=== PATIENT | male | born 1965 | race Caucasian/White ===

== ENCOUNTER 2017-01-18 13:13 | Inpatient (IN) | payer BC ==
--- NOTE | 2017-01-18 13:00 | CT ---
EXAMINATION TYPE: CT abdomen pelvis w con DATE OF EXAM: 01/18/2017 COMPARISON: NONE HISTORY: RLQ pain, Nausea CT DLP: 1506.90 mGycm Automated exposure control for dose reduction was used. TECHNIQUE: Helical acquisition of images from the lung bases through the pelvis have been completed. CONTRAST: Performed with Oral Contrast and with IV Contrast, patient injected with 100 ml mL of Omnipaque 300. FINDINGS: LUNG BASES: Some minimal basilar atelectatic changes are present. AORTA: No significant abnormality is appreciated. LIVER/GB: No significant abnormality is appreciated. PANCREAS: No significant abnormality is seen. SPLEEN: No significant abnormality is seen. ADRENALS: No significant abnormality is seen. KIDNEYS: No significant abnormality is seen. REPRODUCTIVE ORGANS: Calcifications associated with the prostate gland. BOWEL: There is abnormal thickening of the appendix, periappendiceal inflammatory change extending t o the lateral conal fascia and pericecal location. FREE AIR: No Free Air visible. ASCITES: None visible. PELVIC ADENOPATHY: None visualized. RETROPERITONEAL ADENOPATHY: No Retroperitoneal Adenopathy visible. URINARY BLADDER: No significant abnormality is seen. OSSEOUS STRUCTURES: No significant abnormality is seen. IMPRESSION: FINDINGS COMPATIBLE WITH ACUTE APPENDICITIS.
[2017-01-18] MEDS ORDERED: SODIUM CHLORIDE 0.9% 1,000 ML IV STA (13:50)
--- NOTE | 2017-01-18 13:57 | ED ---
General Adult HPI - General Source: patient, RN notes reviewed Mode of arrival: wheelchair Limitations: no limitations <Derrick Fernandez - Last Filed: 01/18/17 14:18> <Paul Snow - Last Filed: 01/18/17 14:21> - General Chief complaint: Abdominal Pain Time Seen by Provider: 01/18/17 13:41 - History of Present Illness Initial comments: Patient is a 51-year-old male who presents emergency room today with chief complaint of right-sided abdominal pain that started yesterday. Patient does admit that he did have an outpatient CT performed and was brought over from CAT scan. He admits to he's had pain right lower quadrant. He states he also has a headache. He denies any other complaints or symptoms. Patient denies any recent fever, chills, shortness of breath, chest pain, nausea or vomiting, numbness or tingling, dysuria or hematuria, constipation or diarrhea, headaches or visual changes, or any other complaints. (Derrick Fernandez) - Related Data Home Medications Medication Instructions Recorded Confirmed No Known Home Medications [No 01/18/17 01/18/17 Known Home Medications] Allergies Allergy/AdvReac Type Severity Reaction Status Date / Time No Known Allergies Allergy Verified 01/18/17 13:22 Review of Systems ROS Other: All systems not noted in ROS Statement are negative. <Derrick Fernandez - Last Filed: 01/18/17 14:18> ROS Other: All systems not noted in ROS Statement are negative. <Paul Snow - Last Filed: 01/18/17 14:21> ROS Statement: Those systems with pertinent positive or pertinent negative responses have been documented in the HPI. Past Medical History Past Medical History: No Reported History History of Any Multi-Drug Resistant Organisms: None Reported Past Surgical History: Orthopedic Surgery Additional Past Surgical History / Comment(s): CYST REMOVAL FROM BACK, TESTICULAR, RIGHT SHOULDER Past Psychological History: No Psychological Hx Reported Smoking Status: Never smoker Past Alcohol Use History: None Reported Past Drug Use History: None Reported <Derrick Fernandez - Last Filed: 01/18/17 14:18> General Exam Limitations: no limitations <Derrick Fernandez - Last Filed: 01/18/17 14:18> <Paul Snow - Last Filed: 01/18/17 14:21> - General Exam Comments Initial Comments: General: The patient is awake and alert, in no distress, and does not appear acutely ill. Eye: Pupils are equal, round and reactive to light, extra-ocular movements are intact. No nystagmus. There is normal conjunctiva bilaterally. No signs of icterus. Ears, nose, mouth and throat: There are moist mucous membranes and no oral lesions. Neck: The neck is supple, there is no tenderness or JVD. Cardiovascular: There is a regular rate and rhythm. No murmur, rub or gallop is appreciated. Respiratory: Lungs are clear to auscultation, respirations are non-labored, breath sounds are equal. No wheezes, stridor, rales, or rhonchi. Gastrointestinal: Normal appearance them. Normal bowel sounds. Soft on palpation. Patient does have tenderness right lower quadrant. No rebound tenderness. No guarding. No CVA tenderness. Musculoskeletal: Normal ROM, no tenderness. Strength 5/5. Sensation intact. Pulses equal bilaterally 2+. Neurological: A&O x 3. CN II-XII intact, There are no obvious motor or sensory deficits. Coordination appears grossly intact. Speech is normal. Skin: Skin is warm and dry and no rashes or lesions are noted. Psychiatric: Cooperative, appropriate mood & affect, normal judgment. (Derrick Fernandez) Vital Signs 01/18/17 13:20 Temperature 100.9 F H Pulse Rate 93 Respiratory 18 Rate Blood Pressure 145/88 O2 Sat by Pulse 98 Oximetry Medical Decision Making <Derrick Fernandez - Last Filed: 01/18/17 14:18> <Paul Snow - Last Filed: 01/18/17 14:21> - Medical Decision Making Patient's CAT scan is consistent with acute appendicitis. Case was discussed and seen by tender physician Dr. Snow who did discuss case with on-call surgeon Dr. Sheikh who will admit the patient. Patient family aware the plan state understating and are in agreement. (Derrick Fernandez) The patient was seen and examined. All diagnostics were reviewed. The case was discussed with general surgery and they will evaluate the patient shortly and he will likely go to the operating room. The case also was discussed with the PA and I agree with the findings as documented. (Paul Snow) Disposition Time of Disposition: 14:13 <Derrick Fernandez - Last Filed: 01/18/17 14:18> <Paul Snow - Last Filed: 01/18/17 14:21> Clinical Impression: Acute appendicitis Disposition: ADMITTED IP TO THIS HOSP Condition: Good Referrals: Sid Schroeder DO [Primary Care Provider] - 1-2 days
[2017-01-18] MEDS ORDERED: NALOXONE 0.4 MG/ML 1 ML VIAL IV PRN (14:16)
[2017-01-18] MEDS ORDERED: ONDANSETRON 4 MG/2 ML VIAL IVP PRN (14:16)
[2017-01-18] MEDS ORDERED: HYDROmorphone 1 MG/ML 1 ML SYRINGE IVP PRN ×2 (14:16→17:36)
[2017-01-18] MEDS ORDERED: PIPERACILLIN-TAZOBACTAM 3.375 GM in DEXTROSE/WATER 1 50ML.BAG IVPB STA (14:18)
[2017-01-18] MEDS ORDERED: ACETAMINOPHEN IV (For NPO) 1,000 MG in EMPTY BAG 1 BAG IVPB STA (14:18)
[2017-01-18 14:20] LABS: Basophils % (A) 0 %; CH 31.9; CHCM 34.8; Eosinophils # (A) 0.2 k/uL (0-0.7); Eosinophils % (A) 1 %; HCT 46.5 % (39.0-53.0); HDW 2.45; Luc # (Auto) 0.13; Luc % (Auto) 1; Lymphocytes # (A) 1.2 k/uL (1.0-4.8); Lymphocytes % (A) 6 %; MCH 31.6 pg (25.0-35.0); MCHC 34.4 g/dL (31.0-37.0); MCV 91.9 fL (80.0-100.0); Mean Platelet Volume 7.2; Monocytes # (A) 0.8 k/uL (0-1.0); Monocytes % (A) 4 %; Neutrophils # (A) 16.9 k/uL (1.3-7.7); Neutrophils % (A) 88 %; RBC 5.06 m/uL (4.30-5.90); RDW 13.6 % (11.5-15.5); WBC 19.2 k/uL (3.8-10.6)
[2017-01-18 14:29] LABS: ALT 36 U/L (21-72); AST 37 U/L (17-59); Alkaline Phosphatase 60 U/L (38-126); Anion Gap 10 mmol/L; Blood Urea Nitrogen 13 mg/dL (9-20); Calcium 9.7 mg/dL (8.4-10.2); Carbon Dioxide 23 mmol/L (22-30); Chloride 103 mmol/L (98-107); Glucose 104 mg/dL (74-99); Non-African American GFR(MDRD) >60 (>60 ml/min/1.73 sqM); Sodium 136 mmol/L (137-145); Total Bilirubin 1.3 mg/dL (0.2-1.3)
[2017-01-18 14:32] LABS: INR 1.1 (<1.2); Partial Thromboplastin Time 25.2 sec (22.0-30.0); Prothrombin Time 11.4 sec (9.0-12.0)
[2017-01-18 14:39] LABS: Potassium 4.1 mmol/L (3.5-5.1)
--- NOTE | 2017-01-18 15:48 | P.GSHP ---
History of Present Illness H&P Date: 01/18/17 Chief Complaint: Acute appendicitis This is a 51-year-old male who presented with a chief complaint of abdominal pain 24 hours he was seen by his PCP who that lab work and sent into the emergency room for a computed tomography scan which was consistent with acute appendicitis. The patient states it had anything to eat or drink today because he has been nauseous. His abdominal pain started yesterday morning and continued to get worse. He denies any fevers or chills. He denies any diarrhea. He's been passing normal bowel movements. He has no major medical problems. He has had surgery on his shoulder before. He had a colonoscopy 1 year ago which was normal. No other complaints at this time. Past Medical History Past Medical History: No Reported History History of Any Multi-Drug Resistant Organisms: None Reported Past Surgical History: Orthopedic Surgery Additional Past Surgical History / Comment(s): CYST REMOVAL FROM BACK, TESTICULAR, RIGHT SHOULDER Past Psychological History: No Psychological Hx Reported Smoking Status: Never smoker Past Alcohol Use History: None Reported Past Drug Use History: None Reported Medications and Allergies Home Medications Medication Instructions Recorded Confirmed Type No Known Home Medications [No 01/18/17 01/18/17 History Known Home Medications] Allergies Allergy/AdvReac Type Severity Reaction Status Date / Time No Known Allergies Allergy Verified 01/18/17 14:47 Surgical - Exam Osteopathic Statement: *. No significant issues noted on an osteopathic structural exam other than those noted in the History and Physical/Consult. Vital Signs Temp Pulse Resp BP Pulse Ox 100.9 F H 93 18 145/88 98 01/18/17 13:20 01/18/17 13:20 01/18/17 13:20 01/18/17 13:20 01/18/17 13:20 - General well developed, well nourished - Eyes PERRL, normal ocular movement - ENT normal pinna, normal mucosa - Neck no masses - Respiratory normal expansion, normal respiratory effort - Cardiovascular Rhythm: regular - Abdomen Abdomen: soft, tender (Right lower quadrant, no rigidity or guarding) - Neurologic normal coordination, normal sensation - Musculoskeletal normal gait - Psychiatric oriented to time, oriented to person Results - Labs 01/18/17 14:05 01/18/17 14:05 Abnormal Lab Results - Last 24 Hours (Table) 01/18/17 01/18/17 Range/Units 14:05 14:05 WBC 19.2 H (3.8-10.6) k/uL Neutrophils # 16.9 H (1.3-7.7) k/uL Sodium 136 L (137-145) mmol/L Glucose 104 H (74-99) mg/dL Diabetes panel 01/18/17 Range/Units 14:05 Sodium 136 L (137-145) mmol/L Potassium 4.1 (3.5-5.1) mmol/L Chloride 103 (98-107) mmol/L Carbon Dioxide 23 (22-30) mmol/L BUN 13 (9-20) mg/dL Creatinine 1.00 (0.66-1.25) mg/dL Glucose 104 H (74-99) mg/dL Calcium 9.7 (8.4-10.2) mg/dL AST 37 (17-59) U/L ALT 36 (21-72) U/L Alkaline Phosphatase 60 (38-126) U/L Total Protein 8.0 (6.3-8.2) g/dL Albumin 4.5 (3.5-5.0) g/dL Calcium panel 01/18/17 Range/Units 14:05 Calcium 9.7 (8.4-10.2) mg/dL Albumin 4.5 (3.5-5.0) g/dL Pituitary panel 01/18/17 Range/Units 14:05 Sodium 136 L (137-145) mmol/L Potassium 4.1 (3.5-5.1) mmol/L Chloride 103 (98-107) mmol/L Carbon Dioxide 23 (22-30) mmol/L BUN 13 (9-20) mg/dL Creatinine 1.00 (0.66-1.25) mg/dL Glucose 104 H (74-99) mg/dL Calcium 9.7 (8.4-10.2) mg/dL Adrenal panel 01/18/17 Range/Units 14:05 Sodium 136 L (137-145) mmol/L Potassium 4.1 (3.5-5.1) mmol/L Chloride 103 (98-107) mmol/L Carbon Dioxide 23 (22-30) mmol/L BUN 13 (9-20) mg/dL Creatinine 1.00 (0.66-1.25) mg/dL Glucose 104 H (74-99) mg/dL Calcium 9.7 (8.4-10.2) mg/dL Total Bilirubin 1.3 (0.2-1.3) mg/dL AST 37 (17-59) U/L ALT 36 (21-72) U/L Alkaline Phosphatase 60 (38-126) U/L Total Protein 8.0 (6.3-8.2) g/dL Albumin 4.5 (3.5-5.0) g/dL - Imaging CT scan - abdomen: report reviewed, image reviewed Assessment and Plan Assessment: Acute appendicitis Plan: Laparoscopic possible open appendectomy. IV ABX, IVF, NPO, SQ heparin and SCDs for DVT prevention. This plan was discussed the patient and his at bedside. The risks benefits and alternatives to surgery were discussed including risks of bleeding infection damage to surrounding tissue need for further operation abscess and conversion to open he stated he understood these risks agreed and consented.
[2017-01-18] MEDS ORDERED: IV FLUID CONTINUATION 900 ML IV ONE (16:07)
[2017-01-18] MEDS: HEPARIN SODIUM,PORCINE 5,000 UNIT/ML 1 ML VIAL SQ SCH (16:07)
[2017-01-18] MEDS ORDERED: ROCURONIUM BROMIDE 10 MG/ML 10 ML VIAL IV ONE (16:14)
[2017-01-18] MEDS ORDERED: PHENYLEPHRINE-0.9% NACL SYG 1 MG/10 ML SYRINGE ONE (16:14)
[2017-01-18] MEDS ORDERED: NEOSTIGMINE 1 MG/ML 10 ML VIAL ONE (16:14)
[2017-01-18] MEDS ORDERED: GLYCOPYRROLATE 0.2 MG/ML 2 ML VIAL ONE (16:14)
[2017-01-18] MEDS ORDERED: PROPOFOL 10 MG/ML 20 ML VIAL IV ONE (16:14)
[2017-01-18] MEDS ORDERED: LIDOCAINE 1% INJ 10MG/ML (20 ML MDV) ONE (16:14)
[2017-01-18] MEDS ORDERED: KETOROLAC 30 MG/ML 1 ML VIAL ONE (16:14)
[2017-01-18] MEDS ORDERED: MIDAZOLAM 2 MG/2 ML VIAL ONE (16:14)
[2017-01-18] MEDS ORDERED: fentaNYL (PF) 50 MCG/ML 2 ML AMP ONE (16:14)
[2017-01-18] MEDS ORDERED: SUCCINYLCHOLINE CHLORIDE 100 MG/5 ML SYR IV ONE (16:14)
[2017-01-18] MEDS ORDERED: LIDOCAINE 1% INJ 10MG/ML (20 ML MDV) SQ ONE (16:48)
[2017-01-18] MEDS ORDERED: BUPIVACAINE-EPI 0.5%-1:200,000 10 ML VIAL SQ ONE (16:49)
--- NOTE | 2017-01-18 17:27 | P.OP ---
Date of Procedure: 01/18/17 Preoperative Diagnosis: Acute appendicitis Postoperative Diagnosis: Acute appendicitis with contained perforation Procedure(s) Performed: Laparoscopic appendectomy Anesthesia: FRANCESCO Surgeon: Chon Sheikh Estimated Blood Loss (ml): 5 Condition: stable Disposition: PACU Indications for Procedure: This is a 51-year-old male who presented with symptoms consistent with acute appendicitis. He had a computed tomography scan and labs that were consistent with acute appendicitis. Laparoscopic appendectomy possible conversion to open was discussed with the patient including risks and benefits. He understood these and agreed and consented Operative Findings: Acute appendicitis with a contained perforation Description of Procedure: Patient was brought into the operative suite remained in the supine position underwent general endotracheal anesthesia per Department of anesthesia. He was then prepped and draped in the usual sterile fashion timeout was performed correct patient and correct procedure correct site was verified. A 12 mm incision was made in the left lower quadrant. Using a 12 mm Visiport the abdomen was entered under direct visualization and insufflated. No injuries were noted. There was a 5 mm port placed under direct visualization supraumbilical. There was a 5 mm port placed under direct visualization suprapubically. The patient was then placed in Trendelenburg right side up. The appendix was grasped with the atraumatic grasper and using a LigaSure the mesoappendix began to be taken down adhesions of the appendix were bluntly taken down. While doing this encountered a contained perforation of the appendix. This was suctioned and cleaned and irrigated. The appendix was taken down to the base of the cecum. A 60 mm holland load Endo LISE stapler was used to staple across the appendix at the base of the cecum. The appendix was placed in an Endo Catch bag and removed to the 12 mm port site. The staple line was inspected and noted be intact hemostasis was noted the area was copiously irrigated and suctioned. The 12 mm port site was closed with 0 Vicryl with 8 of a Kamar-Katia suture passer. The abdomen was desufflated all ports removed the skin was closed with 4-0 Monocryl subcuticular sutures followed by skin glue patient tolerated the procedure well there is no apparent complications
[2017-01-18] MEDS ORDERED: IV FLUID CONTINUATION 1,000 ML IV ONE (18:16)
[2017-01-18] MEDS: LACTATED RINGERS 1,000 ML IV SCH (19:34)
[2017-01-18] MEDS: HYDROcodone/APAP 5-325MG 1 EACH TAB PO PRN (21:11)
[2017-01-19] MEDS ORDERED: HEPARIN SODIUM,PORCINE 5,000 UNIT/ML 1 ML VIAL ONE (00:13)
[2017-01-19] MEDS: HEPARIN SODIUM,PORCINE 5,000 UNIT/ML 1 ML VIAL SQ SCH ×2 (04:45→08:38)
[2017-01-19] MEDS: PIPERACILLIN-TAZOBACTAM 3.375 GM in DEXTROSE/WATER 1 50ML.BAG IVPB SCH ×2 (04:46→08:38)
[2017-01-19] MEDS: HYDROcodone/APAP 5-325MG 1 EACH TAB PO PRN (05:08)
[2017-01-19 06:41] LABS: Basophils % (A) 0 %; CH 32.2; CHCM 34.9; Eosinophils % (A) 0 %; HCT 43.3 % (39.0-53.0); HDW 2.63; HGB 14.4 gm/dL (13.0-17.5); Luc # (Auto) 0.08; Luc % (Auto) 0; Lymphocytes # (A) 0.7 k/uL (1.0-4.8); Lymphocytes % (A) 3 %; MCH 30.8 pg (25.0-35.0); MCHC 33.2 g/dL (31.0-37.0); MCV 92.6 fL (80.0-100.0); Mean Platelet Volume 7.1; Monocytes # (A) 0.7 k/uL (0-1.0); Monocytes % (A) 3 %; Neutrophils # (A) 19.3 k/uL (1.3-7.7); Neutrophils % (A) 93 %; RBC 4.68 m/uL (4.30-5.90); RDW 11.7 % (11.5-15.5); WBC 20.7 k/uL (3.8-10.6); WBC (Perox) 20.65
[2017-01-19 06:51] LABS: ALT 42 U/L (21-72); AST 26 U/L (17-59); Alkaline Phosphatase 49 U/L (38-126); Anion Gap 10 mmol/L; Blood Urea Nitrogen 17 mg/dL (9-20); Calcium 9.2 mg/dL (8.4-10.2); Carbon Dioxide 23 mmol/L (22-30); Chloride 105 mmol/L (98-107); Glucose 139 mg/dL (74-99); Non-African American GFR(MDRD) >60 (>60 ml/min/1.73 sqM); Potassium 4.9 mmol/L (3.5-5.1); Sodium 138 mmol/L (137-145); Total Bilirubin 1.4 mg/dL (0.2-1.3); Total Protein 6.8 g/dL (6.3-8.2)
[2017-01-19 08:02] VITALS: BP 136/75; RESP 16
[2017-01-19] MEDS: LACTATED RINGERS 1,000 ML IV SCH ×2 (08:37→15:37)
[2017-01-19] MEDS ORDERED: IBUPROFEN 600 MG TAB PO PRN (11:05)
[2017-01-19] MEDS ORDERED: DOCUSATE 100 MG CAP PO SCH (11:15)
--- NOTE | 2017-01-19 14:42 | P.PN ---
Progress Note - Text Progress Note Date: 01/19/17 Patient seen and examined today he's doing much better he has no complaints at this time. His pain is well-controlled. He is tolerating clear liquids in stating he is hungry. No fevers overnight. His incisions are clean dry and intact. I discussed with the patient advancing his diet she tolerates his diet he may be discharged home in the afternoon. I recommended discharging the patient on Augmentin secondary to his purulent contained perforation of his appendicitis. He stated he understood and agreed and he'll follow up my office in 1-2 weeks.
--- NOTE | 2017-01-19 14:43 | P.DS ---
Providers Date of admission: 01/18/17 14:16 Expected date of discharge: 01/19/17 Attending physician: Chon Sheikh DO Consults: 01/18/17 15:41 Consult Physician Routine Consulting Provider: [facility] Consult Reason/Comments: [facility] Do you want consulting provider notified?: Yes [facility] Course: 1-year-old male who presented with a chief complaint of having abdominal pain onset 24 hours prior. Patient was seen by his PCP who was sent into the emergency room to have a CAT scan done of the abdomen which was consistent for acute appendicitis patient denied any fever chills. Patient had a colonoscopy one year prior which was normal.. Patient underwent on January 18 laparoscopic appendectomy for acute appendicitis with contained perforation. Postop no events. Patient was tolerating a diet no nausea no vomiting On January 19 was felt to be clinically stable and appropriate proceed with a discharge to home Impression discharge diagnoses Present on admission abdominal pain with a CAT scan of the abdomen consistent with acute appendicitis Status post January 18 laparoscopic appendectomy for acute appendicitis with contained perforation Present on admission leukocytosis suspect reactive The above impression and plan of care have been discussed and directed by signing physician. Andreia Alex nurse practitioner acting as scribe for signing physician. Patient Condition at Discharge: Good Plan - Discharge Summary New Discharge Prescriptions: New Amoxicillin/Potassium Clav [Augmentin 875-125 Tablet] 1 tab PO Q12HR #20 tab Ibuprofen [Motrin] 0 mg PO Q4H PRN #20 tab PRN Reason: Mild Discomfort Discharge Medication List Amoxicillin/Potassium Clav [Augmentin 875-125 Tablet] 1 tab PO Q12HR #20 tab [Rx] Ibuprofen [Motrin] 0 mg PO Q4H PRN #20 tab 01/19/17 [Rx] Follow up Appointment(s)/Referral(s): Sid Schroeder DO [Primary Care Provider] - 1-2 days Chon Sheikh DO [Doctor of Osteopathic Medicine] - 1 Week Care Plan Goals (MU): No strenuous activities until seen in a follow-up visit No tub bath Notify the attending of any redness drainage from surgical site or any fever chills No lifting over 4 pounds until seen in the follow-up visit May return to work after seen in the follow-up visit May shower The above impression and plan of care have been discussed and directed by signing physician. Andreia Alex nurse practitioner acting as scribe for signing physician. Discharge Disposition: HOME SELF-CARE
[2017-01-19 16:24] VITALS: PULSE 81; TEMP 98.3
== END 2017-01-19 17:20 | disposition home or self-care (01) | DRG 340 ==
LOC: EC 13:13 → 3SUR 14:16
PROVIDERS: ADMIT Student in an Organized Health Care Education/Training Program; ATTEND Student in an Organized Health Care Education/Training Program
PROC: 0DTJ4ZZ Resection of Appendix, Percutaneous Endoscopic Approach (ICD-10-PCS; principal; 2017-01-18 14:57)
DX: K35.3 Acute appendicitis with localized peritonitis (principal)
CPT/HCPCS: 36415; 74177; 80053; 85025; 85610; 85730; 86850; 86900; 86901; 87040; 88304; 96361; 96365; 99285

== ENCOUNTER 2017-07-16 23:58 | Emergency (ER) | payer BC ==
[2017-07-17 00:06] VITALS: BP 151/86; PULSE 69; RESP 16; TEMP 97.8
[2017-07-17] MEDS ORDERED: KETOROLAC 30 MG/ML 1 ML VIAL IM STA (00:30)
[2017-07-17] MEDS ORDERED: DIAZEPAM 5 MG/ML 2 ML INJ IM ONE (00:31)
[2017-07-17] MEDS ORDERED: MORPHINE SULFATE 4 MG/ML SYRINGE IM STA (00:31)
--- NOTE | 2017-07-17 00:34 | ED ---
General Adult HPI - General Chief complaint: Back Pain/Injury Stated complaint: Back pain Time Seen by Provider: 07/17/17 00:23 Source: patient, RN notes reviewed, old records reviewed Mode of arrival: wheelchair Limitations: no limitations - History of Present Illness Initial comments: 51-year-old male presents with 12 hour history of right lower back pain. Patient states that approximately once a year he does develop some muscular skeletal back pain. This is typical of his previous exacerbations. Denies any specific injury or overuse. This morning he had some stiffness, this has progressed throughout the day. He has used Motrin and his TENS unit with minimal relief. He denies any lower extremity pain, numbness or tingling. No sensory deficits. No fever or chills. No abdominal pain. No changes in his bowel or bladder. No dysuria or hematuria. Patient is otherwise healthy. - Related Data Previous Rx's Medication Instructions Recorded Amoxicillin/Potassium Clav 1 tab PO Q12HR #20 tab 01/19/17 [Augmentin 875-125 Tablet] Ibuprofen [Motrin] 0 mg PO Q4H PRN #20 tab 01/19/17 Diazepam [Valium] 5 mg PO HS #5 tab 07/17/17 HYDROcodone/APAP 5-325MG [[place] 1 tab PO Q6HR PRN #12 tab 07/17/17 5-325] Ibuprofen [Motrin] 600 mg PO Q8HR PRN #24 tab 07/17/17 Allergies Allergy/AdvReac Type Severity Reaction Status Date / Time No Known Allergies Allergy Verified 07/17/17 00:06 Review of Systems ROS Statement: Those systems with pertinent positive or pertinent negative responses have been documented in the HPI. ROS Other: All systems not noted in ROS Statement are negative. Past Medical History Past Medical History: No Reported History History of Any Multi-Drug Resistant Organisms: None Reported Past Surgical History: Appendectomy, Orthopedic Surgery Additional Past Surgical History / Comment(s): CYST REMOVAL FROM BACK, TESTICULAR, RIGHT SHOULDER Past Anesthesia/Blood Transfusion Reactions: No Reported Reaction Past Psychological History: No Psychological Hx Reported Smoking Status: Never smoker General Exam Limitations: no limitations General appearance: alert, in no apparent distress Head exam: Present: atraumatic, normocephalic Eye exam: Present: normal appearance, PERRL ENT exam: Present: normal exam Neck exam: Present: normal inspection. Absent: tenderness, meningismus Respiratory exam: Present: normal lung sounds bilaterally. Absent: respiratory distress Cardiovascular Exam: Present: regular rate, normal rhythm GI/Abdominal exam: Present: soft. Absent: distended, tenderness, guarding Extremities exam: Present: normal inspection, full ROM, normal capillary refill , pedal edema. Absent: calf tenderness Back exam: Present: normal inspection, paraspinal tenderness. Absent: CVA tenderness (R), CVA tenderness (L) Neurological exam: Present: alert, oriented X3, CN II-XII intact, reflexes normal. Absent: motor sensory deficit Psychiatric exam: Present: normal affect, normal mood Skin exam: Present: warm, dry, intact. Absent: cyanosis, diaphoretic Course Vital Signs 07/17/17 00:03 Temperature 97.8 F Pulse Rate 69 Respiratory 16 Rate Blood Pressure 151/86 O2 Sat by Pulse 97 Oximetry Medical Decision Making - Medical Decision Making 51-year-old male presenting with most of scalp and back pain. No alarming features on history or physical exam. Patient given intramuscular Toradol, morphine, and Valium. On reevaluation he is feeling much better. He is ambulatory. He will be discharged home with anti-inflammatories and pain medication. Follow-up with primary care physician. Disposition Clinical Impression: Mechanical back pain Disposition: HOME SELF-CARE Condition: Good Instructions: Acute Low Back Pain (ED) Prescriptions: Diazepam [Valium] 5 mg PO HS #5 tab HYDROcodone/APAP 5-325MG [[place] 5-325] 1 tab PO Q6HR PRN #12 tab PRN Reason: Pain Ibuprofen [Motrin] 600 mg PO Q8HR PRN #24 tab PRN Reason: Pain Is patient prescribed a controlled substance at d/c from ED?: Yes If prescribed controlled substance>3 days was MAPS reviewed?: Yes When asked, does pt state using other controlled substances?: No Referrals: Sid Schroeder DO [Primary Care Provider] - 1-2 days Time of Disposition: 01:18
== END 2017-07-17 01:35 | disposition home or self-care (01) ==
LOC: EC 23:58
DX: M54.5 Low back pain (principal); Z98.890 Other specified postprocedural states; Z53.20 Procedure and treatment not carried out because of patient's decision for unspecified reasons
CPT/HCPCS: 99283; 96372; J2270; J3360

== ENCOUNTER → 2018-04-24 | Outpatient (CLI) | payer OTHER ==
--- NOTE | 2018-04-24 07:50 | MR ---
EXAMINATION TYPE: MR lumbar spine wo/w con DATE OF EXAM: 04/24/2018 7:45 AM COMPARISON: NONE HISTORY: Lumbago with sciatica, right side CONTRAST: The patient was injected with 10 mL intravenous Gadavist gadolinium contrast. Multiplanar, MultiSpin echo imaging of the lumbar spine was performed. L1-L2: Normal disc appearance without desiccation. No herniation, protrusion or disc bulging. No ca nal stenosis is present. Foramina are patent bilaterally. L2-L3: Normal disc appearance without desiccation. No herniation, protrusion or disc bulging. No ca nal stenosis is present. Foramina are patent bilaterally. L3-L4: Normal disc appearance without desiccation. No herniation, protrusion or disc bulging. No ca nal stenosis is present. Foramina are patent bilaterally. L4-L5: Mild disc desiccation noted. Mild right paracentral disc herniation results in right lateral r ecess stenosis and right foraminal encroachment. No evidence for central stenosis. No pathologic enha ncement. L5-S1: Normal disc appearance without desiccation. No herniation, protrusion or disc bulging. No ca nal stenosis is present. Foramina are patent bilaterally. Lumbar segments are intact. No paraspinal masses are identified. Conus medullaris has a normal appe arance. IMPRESSION: 1. Mild disc desiccation noted. Mild right paracentral disc herniation results in right lateral reces s stenosis and right foraminal encroachment.
== END ==
LOC: RADMRIMAIN 06:59
PROVIDERS: ATTEND Family Medicine
DX: M48.061 Spinal stenosis, lumbar region without neurogenic claudication (principal); M51.26 Other intervertebral disc displacement, lumbar region
CPT/HCPCS: 72158; A9585

== ENCOUNTER → 2018-08-03 | Outpatient (CLI) | payer OTHER ==
[2018-08-03 07:25] LABS: Basophils % (A) 1 %; Eosinophils # (A) 0.2 k/uL (0-0.7); Eosinophils % (A) 2 %; HGB 16.1 gm/dL (13.0-17.5); Lymphocytes # (A) 1.5 k/uL (1.0-4.8); Lymphocytes % (A) 25 %; MCH 29.8 pg (25.0-35.0); MCHC 33.5 g/dL (31.0-37.0); MCV 88.7 fL (80.0-100.0); Mean Platelet Volume 6.9; Monocytes # (A) 0.4 k/uL (0-1.0); Monocytes % (A) 6 %; Neutrophils # (A) 3.9 k/uL (1.3-7.7); Neutrophils % (A) 64 %; Platelet Count 263 k/uL (150-450); RBC 5.41 m/uL (4.30-5.90); RDW 13.8 % (11.5-15.5); WBC 6.1 k/uL (3.8-10.6)
[2018-08-03 11:42] LABS: Albumin 4.4 g/dL (3.80-4.90); Albumin/Globulin Ratio 1.76 (1.60-3.17); Anion Gap 6.5 mmol/L (4.00-12.00); Calcium 9.4 mg/dL (8.7-10.3); Carbon Dioxide 25.5 mmol/L (21.6-31.8); Globulin 2.5 g/dL (1.6-3.3); Potassium 4.6 mmol/L (3.5-5.5); Total Bilirubin 0.7 mg/dL (0.2-1.2); Total Protein 6.9 g/dL (6.2-8.2)
== END | disposition home or self-care (01) ==
LOC: LABWHC1 06:32
PROVIDERS: ATTEND Physician Assistant Medical
DX: Z00.00 Encounter for general adult medical examination without abnormal findings (principal); Z12.5 Encounter for screening for malignant neoplasm of prostate
CPT/HCPCS: 36415; 80053; 80061; 84153; 84443; 85025

== ENCOUNTER 2019-09-22 18:52 | Emergency (ER) | payer OTHER ==
[2019-09-22] MEDS ORDERED: KETOROLAC 30 MG/ML 1 ML VIAL IM STA (19:59)
[2019-09-22] MEDS ORDERED: LIDOCAINE 5% PATCH TOPICAL STA (19:59)
[2019-09-22] MEDS: CYCLOBENZAPRINE 10 MG TAB PO STA ×2 (20:09→20:17)
[2019-09-22] MEDS ORDERED: DIAZEPAM 5 MG/ML 2 ML INJ IM STA (20:18)
[2019-09-22] MEDS ORDERED: ACET/COD 300 MG/30 MG STARTER PACK 6 TAB BTL PO STA (21:10)
--- NOTE | 2019-09-22 21:11 | ED ---
Back Pain HPI - General Chief Complaint: Back Pain/Injury Stated Complaint: Back pain Time Seen by Provider: 09/22/19 19:34 Source: patient Limitations: no limitations - History of Present Illness Initial Comments: Patient is 53-year-old male presenting to emergency Department with a chief complaint of neck pain. This is acute on chronic back pain. Most recent episode started approximately 2 weeks ago and has been gradually increasing severity. He denies any direct trauma to the region. He denies saddle anesthesia, urinary retention with overflow incontinence or bowel incontinence. Reports he took Flexeril with minimal improvement in symptoms. States he did see a orthopedic surgeon who advised him to go physical therapy. Patient reports he did not finish his course of physical therapy. States his most recent MRI reveals multilevel spondylitic changes with degenerative disc disease. - Related Data Previous Rx's Medication Instructions Recorded Amoxicillin/Potassium Clav 1 tab PO Q12HR #20 tab 01/19/17 [Augmentin 875-125 Tablet] Ibuprofen [Motrin] 0 mg PO Q4H PRN #20 tab 01/19/17 Diazepam [Valium] 5 mg PO HS #5 tab 07/17/17 HYDROcodone/APAP 5-325MG [[place] 1 tab PO Q6HR PRN #12 tab 07/17/17 5-325] Ibuprofen [Motrin] 600 mg PO Q8HR PRN #24 tab 07/17/17 Allergies Allergy/AdvReac Type Severity Reaction Status Date / Time No Known Allergies Allergy Verified 09/22/19 19:09 Review of Systems ROS Statement: Those systems with pertinent positive or pertinent negative responses have been documented in the HPI. ROS Other: All systems not noted in ROS Statement are negative. Past Medical History Past Medical History: No Reported History History of Any Multi-Drug Resistant Organisms: None Reported Past Surgical History: Appendectomy, Orthopedic Surgery Additional Past Surgical History / Comment(s): CYST REMOVAL FROM BACK, TESTICULAR, RIGHT SHOULDER Past Anesthesia/Blood Transfusion Reactions: No Reported Reaction Past Psychological History: No Psychological Hx Reported Smoking Status: Never smoker Past Alcohol Use History: None Reported Past Drug Use History: None Reported General Exam Limitations: no limitations General appearance: alert, in no apparent distress, obese Head exam: Present: atraumatic, normocephalic, normal inspection Eye exam: Present: normal appearance, PERRL, EOMI Pupils: Present: normal accommodation ENT exam: Present: normal exam, normal oropharynx, mucous membranes moist, TM's normal bilaterally, normal external ear exam Neck exam: Present: normal inspection, full ROM. Absent: tenderness Respiratory exam: Present: normal lung sounds bilaterally. Absent: respiratory distress, wheezes Cardiovascular Exam: Present: regular rate, normal rhythm, normal heart sounds. Absent: bradycardia, tachycardia GI/Abdominal exam: Present: soft. Absent: distended, tenderness, guarding, rebound Extremities exam: Present: normal inspection, full ROM, normal capillary refill. Absent: tenderness Back exam: Present: normal inspection, full ROM, tenderness, paraspinal tenderness (Right-sided paraspinal tenderness in the lumbosacral region.) Neurological exam: Present: alert, oriented X3 Psychiatric exam: Present: normal affect, normal mood Skin exam: Present: warm, dry, intact, normal color Course Vital Signs 09/22/19 09/22/19 19:07 20:34 Temperature 98.3 F Pulse Rate 82 63 Respiratory 18 16 Rate Blood Pressure 163/105 151/89 O2 Sat by Pulse 98 99 Oximetry Medical Decision Making - Medical Decision Making Patient is a 53-year-old male presenting to emergency Department with chief complaint of back pain. This is acute on chronic back pain. No cauda equina. No red flags. Patient was given Toradol, Lidoderm patch. He was also offered Flexeril but he declined. Patient was also given 5 mg of Valium. On reevaluation patient reports improvement in symptoms. Patient will be discha rged with Tylenol 3 starter pack. Patient advised to follow with mobile security specialist. Return parameters were thoroughly discussed with patient was understanding ago. Case discussed with physician. Disposition Clinical Impression: Mechanical back pain, Strain of lumbar region Disposition: HOME SELF-CARE Instructions (If sedation given, give patient instructions): Acute Low Back Pain (ED) Additional Instructions: Take prescribed medication as directed. Follow-up with orthopedic surgeon. Do not drive or operate machinery when taking medication. Is patient prescribed a controlled substance at d/c from ED?: No Referrals: Sid Schroeder DO [Primary Care Provider] - 1-2 days Walter Payton DO [Doctor of Osteopathic Medicine] - 1-2 days Time of Disposition: 21:10
[2019-09-22] MEDS ORDERED: MORPHINE SULFATE 4 MG/ML SYRINGE IVP STA (21:29)
[2019-09-22 21:38] VITALS: BP 154/92; PULSE 65; RESP 18; TEMP 97.7
== END 2019-09-22 22:02 | disposition home or self-care (01) ==
LOC: EC 18:52
DX: S39.012A Strain of muscle, fascia and tendon of lower back, initial encounter (principal); G89.29 Other chronic pain; X50.9XXA Other and unspecified overexertion or strenuous movements or postures, initial encounter
CPT/HCPCS: 96374; 96372 ×2; 99283; J2270; J3360; J1885

== ENCOUNTER → 2020-02-08 | Outpatient (CLI) | payer OTHER ==
[2020-02-08 13:55] LABS: Basophils % (A) 0 %; Eosinophils # (A) 0.1 k/uL (0-0.7); Eosinophils % (A) 1 %; HCT 48.5 % (39.0-53.0); HGB 16.2 gm/dL (13.0-17.5); Lymphocytes # (A) 1.5 k/uL (1.0-4.8); Lymphocytes % (A) 23 %; MCH 30.5 pg (25.0-35.0); MCHC 33.5 g/dL (31.0-37.0); MCV 91.1 fL (80.0-100.0); Mean Platelet Volume 6.7; Monocytes # (A) 0.4 k/uL (0-1.0); Monocytes % (A) 7 %; Neutrophils # (A) 4.2 k/uL (1.3-7.7); Neutrophils % (A) 66 %; Platelet Count 242 k/uL (150-450); RBC 5.32 m/uL (4.30-5.90); RDW 12.2 % (11.5-15.5); WBC 6.3 k/uL (3.8-10.6)
[2020-02-08 13:59] LABS: Appearance,Urine Clear (Clear); Bilirubin,Urine Negative (Negative); Blood,Urine Negative (Negative); Color,Urine Light Yellow; Glucose,Urine (UA) Negative (Negative); Ketones,Urine Negative (Negative); Leukocyte Esterase,Urine Negative (Negative); Nitrite,Urine Negative (Negative); PH, Urine 5.5 (5.0-8.0); Protein,Urine Negative (Negative); Specific Gravity,Urine 1.007 (1.001-1.035); Urobilinogen,Urine <2.0 mg/dL (<2.0)
[2020-02-08 14:00] LABS: Partial Thromboplastin Time 24.9 sec (22.0-30.0); Prothrombin Time 10.2 sec (9.0-12.0)
--- NOTE | 2020-02-08 14:04 | XR ---
EXAMINATION TYPE: XR chest 2V DATE OF EXAM: 02/08/2020 COMPARISON: None INDICATION: Presurgical clearance TECHNIQUE: Frontal and lateral views of the chest are obtained. FINDINGS: The heart size is normal. The pulmonary vasculature is normal. The lungs are clear. IMPRESSION: 1. No acute pulmonary process.
[2020-02-08 14:12] LABS: Calcium 9.7 mg/dL (8.4-10.2); Potassium 4.9 mmol/L (3.5-5.1)
== END | disposition home or self-care (01) ==
LOC: LABPAT 13:02
PROVIDERS: ATTEND Orthopaedic Surgery Orthopaedic Surgery of the Spine
DX: Z01.818 Encounter for other preprocedural examination (principal); M51.16 Intervertebral disc disorders with radiculopathy, lumbar region; Z01.812 Encounter for preprocedural laboratory examination
CPT/HCPCS: 36415; 71046; 80048; 81003; 85025; 85610; 85730; 86850; 86900; 86901; 87070; 93005

== ENCOUNTER 2020-02-13 09:51 | Day surgery (SDC) | payer OTHER ==
[2020-02-11 09:46] VITALS: BMI 36.3
[~2020-02-13 09:51] MED LIST: DEXAMETHASONE SOD PHOSPHATE 4 MG/ML 1 ML VIAL IV ONE; LACTATED RINGERS 1,000 ML IV SCH; ONDANSETRON 4 MG/2 ML VIAL IVP ONE; ceFAZolin 1,000 MG in SODIUM CHLORIDE 0.9% IRRIGATIO 1,000 ML IRRIGATION PRN
[2020-02-13] MEDS ORDERED: LIDOCAINE 1% (10MG/ML) FOR IV START INTRADERMA ONE (11:13)
[2020-02-13] MEDS ORDERED: ROCURONIUM 10 MG/ML (10 ML VIAL) IV ONE (12:55)
[2020-02-13] MEDS ORDERED: LIDOCAINE 1% INJ 10MG/ML (20 ML MDV) ONE (12:55)
[2020-02-13] MEDS ORDERED: SUCCINYLCHOLINE CHLORIDE VIAL 200 MG/10 ML VIAL IV ONE (12:55)
[2020-02-13] MEDS ORDERED: NEOSTIGMINE 1 MG/ML 10 ML VIAL ONE (12:55)
[2020-02-13] MEDS ORDERED: KETAMINE 10 MG/ML 20 ML VIAL ONE (12:55)
[2020-02-13] MEDS ORDERED: fentaNYL (PF) 50 MCG/ML 2 ML AMP ONE (12:55)
[2020-02-13] MEDS ORDERED: PHENYLEPHRINE 10 MG/ML VIAL ONE (12:55)
[2020-02-13] MEDS ORDERED: PROPOFOL 10 MG/ML 20 ML VIAL IV ONE (12:55)
[2020-02-13] MEDS ORDERED: MIDAZOLAM 2 MG/2 ML VIAL ONE (12:55)
[2020-02-13] MEDS ORDERED: GLYCOPYRROLATE 0.2 MG/ML 2 ML VIAL ONE (12:55)
[2020-02-13] MEDS ORDERED: LIDOCAINE 2%-EPI 1:100,000 20 ML VIAL SQ ONE (13:24)
[2020-02-13] MEDS ORDERED: BUPIVACAINE (PF) 0.25% 30 ML VIAL SQ ONE (13:24)
[2020-02-13] MEDS ORDERED: LACTATED RINGERS 1,000 ML IV ONE ×2 (13:39→16:47)
[2020-02-13] MEDS ORDERED: methylPREDNISolone ACETATE 40 MG/ML 1 ML VIAL INJ ONE (13:58)
--- NOTE | 2020-02-13 14:05 | FL ---
Fluoroscopy INDICATION: Pain FINDINGS: Fluoroscopy time: 3 seconds. Images obtained: 1. IMPRESSIONS: 1. Documentation of fluoroscopy.
[2020-02-13] MEDS ORDERED: MAGNESIUM HYDROXIDE 2,400 MG/10 ML CUP PO PRN (14:19)
[2020-02-13] MEDS ORDERED: BENZOCAINE/MENTHOL LOZENG 1 EACH LOZENGE MUCOUS MEM PRN (14:19)
[2020-02-13] MEDS ORDERED: HYDROmorphone 1 MG/ML 1 ML SYRINGE IVP PRN (14:19)
[2020-02-13] MEDS ORDERED: HYDROmorphone 0.5 MG/0.5 ML SYRINGE IVP PRN (14:19)
[2020-02-13] MEDS ORDERED: IBUPROFEN 600 MG TAB PO PRN (14:20)
[2020-02-13] MEDS ORDERED: HYDROcodone/APAP 5-325MG 1 EACH TAB PO PRN (14:20)
[2020-02-13] MEDS ORDERED: ONDANSETRON 4 MG/2 ML VIAL IVP PRN (14:20)
[2020-02-13] MEDS ORDERED: KETOROLAC 15 MG/ML 1 ML VIAL IVP PRN (14:20)
[2020-02-13] MEDS ORDERED: SODIUM CHLORIDE 0.9% 1,000 ML IV SCH (14:30)
--- NOTE | 2020-02-13 14:30 | P.OP ---
Date of Procedure: 02/13/20 Preoperative Diagnosis: Herniated nucleus pulposis L4 5, right lower extremity radiculopathy Postoperative Diagnosis: Same Anesthesia: GETA Pathology: none sent Condition: stable Disposition: PACU Description of Procedure: BRIEF OPERATIVE NOTE Preoperative Diagnosis:Herniated nucleus pulposis L4 5, right lower extremity radiculopathy Postoperative Diagnosis:Herniated nucleus pulposis L4 5, right lower extremity radiculopathy Procedure: Laminectomy and decompression L4 5 Discectomy for decompression L4 5 Surgeon: Dr. Payton [employer] Faculty Member: Andrzej Joyner is present throughout the entire the case persistence during positioning, dissection, exposure, visualization, and all crucial elements of the case as well as closure. Anesthesia: General anesthesia Dr. Rasheed Estimated blood loss: Approximately 25 mL Complications: None apparent Components implanted: None Disposition: To recovery room in good stable condition. OPERATIVE INDICATIONS The patient has been having issues in their lower back and lower extremities. He's been having pain on and off every year or year and a half with his back and his right lower extremity. His most recent case has been significant and is been having his pain at his back down his right leg which matched the L5 distribution. The patient has been through conservative treatment. He is found have disc herniations at L4 5 with right foraminal stenosis which correlated well with his low back and lower extremity symptoms. We discussed various treatment options including surgery, and the patient wishes to proceed with surgery We discussed the risk, patient's alternatives and benefits of surgery including but not limited to, risk of bleeding risk of infection, risk of need for further surgery, risk of decreased, loss of motion, loss of function, nerve damage, paralysis, heart attack, blindness and . OPERATIVE SUMMARY After discussing all the risks, patient alternatives and benefits at length, the patient elected to proceed with surgical intervention, signed informed consent, and presented for their procedure. The patient was seen and examined in the preoperative holding area and the surgical site was marked. The patient was given antibiotics and brought to the operating room. The patient was sedated and intubated by anesthesia in standard fashion. The patient was positioned on to the operating room table in a prone position on the appropriate frame which was well-padded and well molded. We were careful to pad any bony prominences and pressure points. We were careful to maintain the patient's cervical spine and good neutral alignment and position throughout. The patient was prepped and draped in a normal standard fashion. An appropriate timeout and keystone protocol performed. We were able to proceed with the surgery. Fluoroscopy was utilized to establish the appropriate level. The local wound area was infiltrated with local anesthetic. An incision was made at the midline longitudinally over the appropriate levels at L4 5. Dissection was taken down subcutaneously to the level of the fascia which was split midline. Dissection was taken over the lamina. Intraoperative fluoroscopy was taken which showed a marker at the appropriate level at L4 5. With the appropriate level positively confirmed, we were able to proceed with laminectomy. The wound was copiously irrigated and suctioned dry as had been done periodically throughout the case. I performed a laminectomy with a combination of curettes and a high-speed bur and Kerrison rongeurs. A small medial facetectomy was performed again further access. A partial foraminotomy was also performed. Portions of the ligamentum flavum were taken down to expose the dura and traversing nerve root. I was able to mobilize the traversing nerve root and gain access to the disc space. Note was made of obvious compression from the disc. Protecting the soft tissue structures, a small annulotomy was established. I was able to perform discectomy and remove any extruded disc fragments and any loose fragments from within the disc itself. There is some disc desiccation noted. There are number of loose fragments into the disc and some extruded fragment which was removed as well. I tried to preserve the disc annulus that appeared stable. There were no further extruded fragments noted. There is no evidence of dural tear or leak. Good hemostasis maintained. The wound was copiously irrigated and suctioned dry. Good decompression and discectomy was noted. We were able to proceed with closure. The fascia was closed for a watertight closure. The subcuticular tissue was closed with absorbable suture. The wound was cleaned and dried and dressed with the appropriate dressing. The drapes were broken down. The patient was gently rolled back onto their hospital bed being careful to maintain their cervical spine and good neutral alignment and position. They were woken up by anesthesia, extubated, and brought to the recovery room in good stable condition. The patient will be admitted to the hospital for observation and for appropriate postoperative care, medical management and monitoring. We will continue to follow them closely about the postoperative course.
[2020-02-13 14:40] VITALS: TEMP 97.2
[2020-02-13] MEDS: HYDROmorphone 0.5 MG/0.5 ML SYRINGE IVP PRN ×4 (14:40→15:16)
[2020-02-13 15:48] VITALS: RESP 16
[2020-02-13] MEDS ORDERED: KETOROLAC 15 MG/ML 1 ML VIAL IVP ONE (17:36)
[2020-02-13] MEDS ORDERED: METOCLOPRAMIDE 5 MG/ML 2 ML VIAL ONE (17:54)
[2020-02-13] MEDS ORDERED: METOCLOPRAMIDE 5 MG/ML 2 ML VIAL IVP ONE (17:57)
[2020-02-13] MEDS ORDERED: ONDANSETRON 4 MG/2 ML VIAL IVP ONE (17:58)
[2020-02-13 18:03] VITALS: BP 137/79; PULSE 83
== END 2020-02-13 18:42 | disposition home or self-care (01) ==
LOC: OR 09:51
PROVIDERS: ATTEND Orthopaedic Surgery Orthopaedic Surgery of the Spine
DX: M51.16 Intervertebral disc disorders with radiculopathy, lumbar region (principal); M48.061 Spinal stenosis, lumbar region without neurogenic claudication; K21.9 Gastro-esophageal reflux disease without esophagitis; N40.0 Benign prostatic hyperplasia without lower urinary tract symptoms; I10 Essential (primary) hypertension; E78.2 Mixed hyperlipidemia; Z79.899 Other long term (current) drug therapy
CPT/HCPCS: 86900; 86901; 86850; 72020; 63030; J2250; J0330; J1030; J2370; J2710; J2765; J0690 ×2; J2405; J2001; J3010; J1885; J2704; J1170

== ENCOUNTER 2020-04-14 00:22 | Emergency (ER) | payer OTHER ==
[2020-04-14] MEDS ORDERED: SODIUM CHLORIDE 0.9% 500 ML 500 ML IV STA (00:41)
[2020-04-14] MEDS ORDERED: cloNIDine HCL 0.2 MG TAB PO STA (00:42)
--- NOTE | 2020-04-14 00:44 | ED ---
Headache HPI - General Stated Complaint: High BP Time Seen by Provider: 04/14/20 00:33 - History of Present Illness Initial Comments: This patient is a 54-year-old man who presents with complaint of headache and high blood pressure. The patient states that he has been having a headache for approximately one week, and his syed suggested that they checked his blood pressure. They found it to be quite elevated and presented here for evaluation. Patient denies any associated symptoms. He has not had sinus congestion or cough. No neck stiffness or pain. No fever or chills. No change in vision hearing, speech or swallowing. No neurologic symptoms. MD Complaint: headache Onset/Timin -: week(s) Onset Description: gradual Location: occipital Severity: moderate Quality: aching, worst headache of life Consistency: constant Improves With: nothing Worsens With: none Context: occurred at rest Treatments Prior to Arrival: Ibuprofen - Related Data Home Medications Medication Instructions Recorded Confirmed Gabapentin [Neurontin] 600 mg PO BID 02/11/20 02/13/20 Tadalafil [Cialis] 5 mg PO DAILY 02/11/20 02/13/20 Previous Rx's Medication Instructions Recorded HYDROcodone/APAP 5-325MG [[place] 5] 1 each PO Q6HR PRN #28 tab 02/13/20 Ketorolac [Toradol] 10 mg PO Q8HR PRN #12 tab 02/13/20 Allergies Allergy/AdvReac Type Severity Reaction Status Date / Time No Known Allergies Allergy Verified 04/14/20 00:43 Review of Systems ROS Statement: Those systems with pertinent positive or pertinent negative responses have been documented in the HPI. ROS Other: All systems not noted in ROS Statement are negative. Constitutional: Denies: fever, chills Eyes: Denies: eye pain, vision change ENT: Denies: ear pain, hearing loss, congestion Respiratory: Denies: cough, dyspnea Cardiovascular: Denies: chest pain, palpitations, syncope Gastrointestinal: Denies: abdominal pain, vomiting, diarrhea Genitourinary: Denies: dysuria, hematuria Musculoskeletal: Denies: back pain Skin: Denies: rash Neurological: Reports: as per HPI, headache. Denies: weakness, numbness, paresthesias, confusion Past Medical History Past Medical History: No Reported History History of Any Multi-Drug Resistant Organisms: None Reported Past Surgical History: Appendectomy, Orthopedic Surgery Additional Past Surgical History / Comment(s): CYST REMOVAL FROM BACK, TESTICULAR, RIGHT SHOULDER Past Anesthesia/Blood Transfusion Reactions: No Reported Reaction Smoking Status: Never smoker General Exam General appearance: alert, in no apparent distress Head exam: Present: atraumatic, normocephalic Eye exam: Present: normal appearance. Absent: scleral icterus, conjunctival injection ENT exam: Present: normal oropharynx Neck exam: Present: normal inspection, full ROM. Absent: tenderness, meningismus Respiratory exam: Present: normal lung sounds bilaterally. Absent: respiratory distress, wheezes, rales, rhonchi, stridor Cardiovascular Exam: Present: regular rate, normal rhythm, normal heart sounds. Absent: systolic murmur, diastolic murmur, rubs, gallop GI/Abdominal exam: Present: soft. Absent: distended, tenderness, guarding, rebound, rigid, mass Extremities exam: Present: normal inspection, normal capillary refill. Absent: pedal edema, calf tenderness Back exam: Present: normal inspection. Absent: CVA tenderness (R), CVA tenderness (L) Neurological exam: Present: alert, oriented X3, CN II-XII intact. Absent: motor sensory deficit Skin exam: Present: warm, dry, intact, normal color. Absent: rash Course Vital Signs 04/14/20 04/14/20 04/14/20 00:25 00:49 01:05 Temperature 98.4 F Pulse Rate 86 81 82 Respiratory 18 18 18 Rate Blood Pressure 222/112 177/104 180/98 O2 Sat by Pulse 96 96 100 Oximetry Medical Decision Making - Lab Data Result diagrams: 04/14/20 00:47 04/14/20 00:47 Lab Results 04/14/20 04/14/20 04/14/20 Range/Units 00:47 00:47 00:47 WBC 9.2 (3.8-10.6) k/uL RBC 5.43 (4.30-5.90) m/uL Hgb 16.4 (13.0-17.5) gm/dL Hct 47.9 (39.0-53.0) % MCV 88.2 (80.0-100.0) fL MCH 30.2 (25.0-35.0) pg MCHC 34.2 (31.0-37.0) g/dL RDW 13.2 (11.5-15.5) % Plt Count 239 (150-450) k/uL MPV 6.6 Neutrophils % 70 % Lymphocytes % 19 % Monocytes % 6 % Eosinophils % 2 % Basophils % 0 % Neutrophils # 6.4 (1.3-7.7) k/uL Lymphocytes # 1.7 (1.0-4.8) k/uL Monocytes # 0.6 (0-1.0) k/uL Eosinophils # 0.2 (0-0.7) k/uL Basophils # 0.0 (0-0.2) k/uL PT 10.6 (9.0-12.0) sec INR 1.0 (<1.2) APTT 24.6 (22.0-30.0) sec Sodium 138 (137-145) mmol/L Potassium 4.1 (3.5-5.1) mmol/L Chloride 102 (98-107) mmol/L Carbon Dioxide 25 (22-30) mmol/L Anion Gap 11 mmol/L BUN 17 (9-20) mg/dL Creatinine 1.08 (0.66-1.25) mg/dL Est GFR (CKD-EPI)AfAm 89 (>60 ml/min/1.73 sqM) Est GFR (CKD-EPI)NonAf 77 (>60 ml/min/1.73 sqM) Glucose 118 H (74-99) mg/dL Calcium 9.4 (8.4-10.2) mg/dL Magnesium 2.1 (1.6-2.3) mg/dL Total Bilirubin 0.6 (0.2-1.3) mg/dL AST 40 (17-59) U/L ALT 45 (4-49) U/L Alkaline Phosphatase 48 (38-126) U/L Troponin I (0.000-0.034) ng/mL Total Protein 7.9 (6.3-8.2) g/dL Albumin 4.6 (3.5-5.0) g/dL 04/14/20 Range/Units 00:47 WBC (3.8-10.6) k/uL RBC (4.30-5.90) m/uL Hgb (13.0-17.5) gm/dL Hct (39.0-53.0) % MCV (80.0-100.0) fL MCH (25.0-35.0) pg MCHC (31.0-37.0) g/dL RDW (11.5-15.5) % Plt Count (150-450) k/uL MPV Neutrophils % % Lymphocytes % % Monocytes % % Eosinophils % % Basophils % % Neutrophils # (1.3-7.7) k/uL Lymphocytes # (1.0-4.8) k/uL Monocytes # (0-1.0) k/uL Eosinophils # (0-0.7) k/uL Basophils # (0-0.2) k/uL PT (9.0-12.0) sec INR (<1.2) APTT (22.0-30.0) sec Sodium (137-145) mmol/L Potassium (3.5-5.1) mmol/L Chloride (98-107) mmol/L Carbon Dioxide (22-30) mmol/L Anion Gap mmol/L BUN (9-20) mg/dL Creatinine (0.66-1.25) mg/dL Est GFR (CKD-EPI)AfAm (>60 ml/min/1.73 sqM) Est GFR (CKD-EPI)NonAf (>60 ml/min/1.73 sqM) Glucose (74-99) mg/dL Calcium (8.4-10.2) mg/dL Magnesium (1.6-2.3) mg/dL Total Bilirubin (0.2-1.3) mg/dL AST (17-59) U/L ALT (4-49) U/L Alkaline Phosphatase (38-126) U/L Troponin I 0.014 (0.000-0.034) ng/mL Total Protein (6.3-8.2) g/dL Albumin (3.5-5.0) g/dL - EKG Data -: EKG Interpreted by [place] EKG shows normal: sinus rhythm, axis (Normal), intervals (Normal), QRS complexes (Normal), ST-T waves (Normal) Rate: normal (Rate 78 bpm) Interpretation: normal EKG Disposition Clinical Impression: Hypertension, Headache Disposition: HOME SELF-CARE Condition: Good Instructions (If sedation given, give patient instructions): Acute Headache (ED), Hypertension (ED) Is patient prescribed a controlled substance at d/c from ED?: No Referrals: Sid Schroeder DO [Primary Care Provider] - 1-2 days
[2020-04-14 00:45] VITALS: RESP 18; TEMP 98.4
[2020-04-14] MEDS ORDERED: METOCLOPRAMIDE 5 MG/ML 2 ML VIAL IVP STA (00:50)
[2020-04-14] MEDS ORDERED: diphenhydrAMINE 50 MG/ML 1 ML VIAL IVP STA (00:50)
[2020-04-14 01:00] LABS: Basophils % (A) 0 %; Eosinophils # (A) 0.2 k/uL (0-0.7); Eosinophils % (A) 2 %; HCT 47.9 % (39.0-53.0); HGB 16.4 gm/dL (13.0-17.5); Lymphocytes # (A) 1.7 k/uL (1.0-4.8); Lymphocytes % (A) 19 %; MCH 30.2 pg (25.0-35.0); MCHC 34.2 g/dL (31.0-37.0); MCV 88.2 fL (80.0-100.0); Mean Platelet Volume 6.6; Monocytes # (A) 0.6 k/uL (0-1.0); Monocytes % (A) 6 %; Neutrophils # (A) 6.4 k/uL (1.3-7.7); Neutrophils % (A) 70 %; Platelet Count 239 k/uL (150-450); RBC 5.43 m/uL (4.30-5.90); RDW 13.2 % (11.5-15.5); WBC 9.2 k/uL (3.8-10.6)
--- NOTE | 2020-04-14 01:04 | CT ---
EXAM: CT Head Without Intravenous Contrast CLINICAL HISTORY: ITS.REASON CT Reason: headache TECHNIQUE: Axial computed tomography images of the head/brain without intravenous contrast. CTDI is 49.27 mGy and DLP is 1091.4 mGy-cm. This CT exam was performed using one or more of the following dose reduction techniques: automated exposure control, adjustment of the mA and/or kV according to patient size, and/or use of iterative reconstruction technique. COMPARISON: No relevant prior studies available. FINDINGS: Brain: No acute infarct, hemorrhage, mass or edema. Ventricles: Unremarkable. No ventriculomegaly. Bones/joints: Unremarkable. No acute calvarial fracture. Soft tissues: Unremarkable. Sinuses: Minimal mucosal thickening of the paranasal sinuses. Mastoid air cells: Unremarkable as visualized. IMPRESSION: No acute infarct, hemorrhage, mass or edema.
[2020-04-14 01:08] LABS: Partial Thromboplastin Time 24.6 sec (22.0-30.0); Prothrombin Time 10.6 sec (9.0-12.0)
--- NOTE | 2020-04-14 01:08 | XR ---
EXAM: XR Chest, 1 View CLINICAL HISTORY: ITS.REASON XR Reason: chest pain TECHNIQUE: Frontal view of the chest. COMPARISON: Chest x-ray dated 02/08/2020 FINDINGS: Lungs: Unremarkable. Pleural space: Unremarkable. Heart: Unremarkable. Mediastinum: Unremarkable. Bones/joints: Unremarkable. IMPRESSION: Normal chest x-ray.
[2020-04-14 01:19] LABS: Albumin 4.6 g/dL (3.5-5.0); Calcium 9.4 mg/dL (8.4-10.2); Magnesium 2.1 mg/dL (1.6-2.3); Potassium 4.1 mmol/L (3.5-5.1); Total Bilirubin 0.6 mg/dL (0.2-1.3); Total Protein 7.9 g/dL (6.3-8.2)
[2020-04-14 02:16] VITALS: BP 140/82; PULSE 86
== END 2020-04-14 02:20 | disposition home or self-care (01) ==
LOC: EC 00:22
DX: I10 Essential (primary) hypertension (principal); Z90.49 Acquired absence of other specified parts of digestive tract
CPT/HCPCS: 36415; 93005; 80053; 83735; 84484; 85025; 85610; 85730; 71045; 70450; 99284; 96374; 96375; J1200; J2765

== ENCOUNTER → 2020-06-03 | Outpatient (CLI) | payer OTHER ==
--- NOTE | 2020-06-05 08:46 | EST ---
EXERCISE STRESS DATE OF SERVICE: 06/03/2020 AGE: 54 SEX: Male HT: 5'9" WT: 234 lbs. PROTOCOL: Mychal STAGE: 2 DURATION OF EXERCISE: 7 minutes HEART RATE REST: 75 BLOOD PRESSURE REST: 135/86 MAXIMUM HEART RATE ACHIEVED: 155 MAXIMUM BLOOD PRESSURE: 214/87 85% MPHR: 140 100% MPHR: 165 METS: 8.5 INDICATIONS: Chest pain CLINICAL INFORMATION: Baseline EKG revealed normal sinus rhythm without significant ST-T changes. Patient walked on standard Mychal protocol for 7 minutes achieved a maximal heart rate of 155 beats per minute which is well above 85% of predicted maximal. He developed fatigue and shortness of breath but did not have angina or arrhythmia. The resting blood pressure was 135/86, and peak blood pressure was 214/87, and came back to baseline slowly. The patient did not have angina. There were no EKG changes to indicate ischemia. There was no significant arrhythmia. Only one couplet was noted. No associated symptoms. By EKG criteria, this is a negative stress test with limited exercise capacity. The patient had a hypertensive response to exercise, but there is no evidence to suggest ischemia on this regular stress test. MMODL / IJN: [id number] /
== END | disposition home or self-care (01) ==
LOC: RADNMMAIN 10:34
PROVIDERS: ATTEND Family Medicine
DX: R07.9 Chest pain, unspecified (principal); I10 Essential (primary) hypertension
CPT/HCPCS: 93017

== ENCOUNTER → 2021-08-12 | Outpatient (CLI) | payer OTHER ==
--- NOTE | 2021-08-13 10:27 | CA ---
Transthoracic Echo Report Name: Tone Alvarenga Age: 55 Gender: M : 1965 Exam Date: 08/12/2021 15:19 Exam Location: [facility] Ht (in): 69 Wt (lb): 250 Ordering Physician: Sid Schroeder DO Attending/Referring Phys: Britney Wolf PAC [employer] Ludmila West RDCS Procedure CPT: Indications: EDEMA, HTN R60.9 Cardiac Hx: Technical Quality: Good Contrast 1: Total Dose (mL): Contrast 2: Total Dose (mL): MEASUREMENTS (Male / Female) Normal Values 2D ECHO LV Diastolic Diameter PLAX 4.2 cm 4.2 - 5.9 / 3.9 - 5.3 cm LV Systolic Diameter PLAX 2.6 cm IVS Diastolic Thickness 1.3 cm 0.6 - 1.0 / 0.6 - 0.9 cm LVPW Diastolic Thickness 1.3 cm 0.6 - 1.0 / 0.6 - 0.9 cm LV Relative Wall Thickness 0.6 RV Internal Dim ED PLAX 3.0 cm LA Systolic Diameter LX 3.5 cm 3.0 - 4.0 / 2.7 - 3.8 cm LA Volume 50.2 cm??? 18 - 58 / 22 - 52 cm??? M-MODE Aortic Root Diameter MM 3.1 cm MV E Point Septal Separation 0.6 cm AV Cusp Separation MM 2.1 cm DOPPLER AV Peak Velocity 125.8 cm/s AV Peak Gradient 6.3 mmHg MV Area PHT 2.7 cm??? Mitral E Point Velocity 75.6 cm/s Mitral A Point Velocity 82.0 cm/s Mitral E to A Ratio 0.9 MV Deceleration Time 281.8 ms MV E' Velocity 7.9 cm/s Mitral E to MV E' Ratio 9.6 FINDINGS Left Ventricle Left ventricular ejection fraction is estimated at 60-65 %. Left ventricular cavity size normal. Mild concentric left ventricular hypertrophy. Right Ventricle Normal right ventricular size and function. Unable to estimate the right ventricular systolic pressure. Right Atrium Normal right atrial size. Left Atrium Normal left atrial size. No evidence for an atrial septal defect. Mitral Valve Structurally normal mitral valve. No mitral stenosis, regurgitation or prolapse. Aortic Valve Trileaflet aortic valve. No aortic valve stenosis or regurgitation. Tricuspid Valve Structurally normal tricuspid valve. No tricuspid stenosis, regurgitation or prolapse. Pulmonic Valve Structurally normal pulmonic valve. Pericardium Normal pericardium. Aorta Normal size aortic root and proximal ascending aorta. CONCLUSIONS #1. Normal with left ventricular size and function with mild concentric hypertrophy. #2. Normal valvular function and structure Previewed by: Dr. Dario Deleon MD (Electronically Signed) Final Date: 13 August 2021 10:26
== END | disposition home or self-care (01) ==
LOC: RADECHMAIN 14:44
PROVIDERS: ATTEND Family Medicine
DX: I51.7 Cardiomegaly (principal); I10 Essential (primary) hypertension
CPT/HCPCS: 93306

== ENCOUNTER → 2023-03-25 | Outpatient (CLI) | payer OTHER ==
--- NOTE | 2023-04-08 19:52 | P.HOLTER ---
48 HOUR HOLTER MONITOR : INDICATION: Palpitations and other arrhythmias START DATE: 03/25/2023 END DATE: 03/27/2023 FINDINGS: Max HR: 147 BPM Min HR: 53 BPM Average HR: 76 BPM Supra-Ventricular ectopic burden: 3.4% Ventricular ectopic burden: Less than 0.01% which were mostly [monomorphic] There were no signficant atrial fibrillation, atrial flutter, or sustained ventricular tachycardia episodes. There were no high-grade AV blocks There were no significant pauses greater than 2 seconds. CONCLUSION: Underlying rhythm was sinus with no reported atrial fibrillation or pauses. There were frequent supraventricular ectopic beats with a total burden of 3.4%. There were no significant premature ventricular contractions. Few premature ventricular contractions were monomorphic. Patient triggered 1 event which corresponded to sinus rhythm with premature atrial contractions. Overall fairly normal study Please correlate clinically. Eduardo Cisneros MD, FACC, RPVI Thank you for allowing [facility] to participate in this patient's care. Feel free to reach out in case of any followup questions. Please CC this report to Dr. Sid Way DO
== END | disposition home or self-care (01) ==
LOC: RADECHMAIN 07:57
PROVIDERS: ATTEND Family Medicine
DX: I49.49 Other premature depolarization (principal); I49.3 Ventricular premature depolarization; I49.8 Other specified cardiac arrhythmias; I10 Essential (primary) hypertension; I49.1 Atrial premature depolarization; R00.2 Palpitations; R07.89 Other chest pain
CPT/HCPCS: 93225; 93226